=== PATIENT | female | born 1985 | race Two or more races ===

== ENCOUNTER 2024-02-03 00:28 | Inpatient (IN) | payer MEDICAID, OTHER ==
[~2024-02-03] VITALS: Ht 157.5 cm; Wt 62.2 kg
[2024-02-03] VITALS (7 sets, daily range): BP systolic 96–110; BP diastolic 59–73; TEMP 97.7–99.5; O2SAT 95–99
[2024-02-03] MEDS: IV NS 0.9% 1,000 ML BAG IV ONE ×2 (00:48)
[2024-02-03 00:51] LABS: BASOPHILS % (AUTO) 0.6 % (0.0-2.0); EOSINOPHILS # (AUTO) 0.1 K/uL (0.0-0.7); EOSINOPHILS % (AUTO) 1.2 % (0.0-6.0); HEMATOCRIT 37 % (33-45); HEMOGLOBIN 12.4 g/dL (11.5-14.8); LYMPHOCYTES # (AUTO) 1.8 K/uL (0.8-4.8); LYMPHOCYTES % (AUTO) 31.7 % (20.0-44.0); MEAN CORPUSCULAR HEMOGLOBIN 29 PG (26.0-33.0); MEAN CORPUSCULAR HGB CONC 33 g/dl (31.0-36.0); MEAN CORPUSCULAR VOLUME 88 fL (82-100); MONOCYTES # (AUTO) 0.2 K/uL (0.1-1.30); MONOCYTES % (AUTO) 3.9 % (2.0-12.0); NEUTROPHILS # (AUTO) 3.6 K/uL (1.8-8.9); NEUTROPHILS % (AUTO) 62.6 % (43.0-81.0); PLATELET COUNT (AUTO) 216 K/uL (150-450); RED BLOOD CELL COUNT(AUTO) 4.22 MIL/uL (4.0-5.2); RED CELL DISTRIBUTION WIDTH 13.2 % (11.5-15.0); WHITE BLOOD COUNT (AUTO) 5.7 K/uL (4.3-11.0)
[2024-02-03 01:00] LABS: ABG BASE EXCESS -7.5 mmol/L (-2.0-3.0); ABG OXYGEN SATURATION 97.8 % (94.0-98.0); ABG PCO2 39.2 mmHg (32.0-45.0); ABG PH 7.291 (7.350-7.450); ABG PO2 144.6 mmHg (83.0-108.0); ABG TOTAL HEMOGLOBIN 11.9 G/dL (12.0-16.0); COHb 4.8 % (0.5-1.5); MetHb 0.3 % (0.0-1.5); O2Hb 92.8 % (94.0-97.0); SITE, ABG Left Radial; VENT MODE, BG NASAL CANNULA
[2024-02-03 01:38] LABS: PREGNANCY TEST URINE QUAL NEGATIVE (NEGATIVE)
[2024-02-03 01:39] LABS: CALCIUM, SERUM 7.7 mg/dL (8.5-10.1); CARBON DIOXIDE 21 mmol/L (21-32); CHLORIDE 108 mmol/L (98-107); CREATININE 0.6 mg/dL (0.6-1.3); GLUCOSE 90 mg/dL (74-106); SODIUM SERUM 140 mmol/L (136-145); UREA NITROGEN, BLOOD 7 mg/dL (7-18)
[2024-02-03 01:39] LABS: APPEARANCE,URINE SLIGHTLY CLOUDY (CLEAR); BILIRUBIN,URINE NEGATIVE (NEGATIVE); BLOOD, URINE NEGATIVE Ery/uL (NEGATIVE); COLOR,URINE YELLOW (YELLOW); KETONES,URINE TRACE mg/dL (NEGATIVE); LEUKOCYTE ESTERASE ,URINE 1+ (NEGATIVE); NITRITE, URINE NEGATIVE (NEGATIVE); PH,URINE 5.5 (5.0-8.0); PROTEIN,URINE NEGATIVE (NEGATIVE); UGLUCOSE NEGATIVE (NEGATIVE); UROBILINOGEN,URINE 0.2 EU/dL (0.2)
[2024-02-03 01:43] LABS: ACETAMINOPHEN < 10 ug/ml (10-30); ALANINE AMINOTRANSFERASE 25 U/L (12-78); ALCOHOL, BLOOD 154 mg/dL (0-10); ALKALINE PHOSPHATASE 41 U/L (46-116); ASPARTATE AMINOTRANSFERASE 20 U/L (15-37); BILIRUBIN,DIRECT 0.1 mg/dL (0.0-0.2); BILIRUBIN,TOTAL 0.2 mg/dL (0.2-1.0); TOTAL PROTEIN, SERUM 6.2 g/dL (6.4-8.2)
[2024-02-03 01:46] LABS: AMPHETAMINE, URINE NEGATIVE (NEGATIVE); BARBITURATE, URINE NEGATIVE (NEGATIVE); BENZODIAZEPINE, URINE NEGATIVE (NEGATIVE); CANNABINOID, URINE NEGATIVE (NEGATIVE); COCCAINE, URINE NEGATIVE (NEGATIVE); OPIATE, URINE NEGATIVE (NEGATIVE); PHENCYCLIDINE SCREEN,URINE NEGATIVE (NEGATIVE)
[2024-02-03 01:47] LABS: SALICYLATE < 2.3 mg/dL (2.8-20.0)
[2024-02-03 01:56] LABS: ADD URINE CULTURE YES; BACTERIA,URINE Few /HPF (None Seen); RBC,URINE 0-2 /HPF (0-2); SQUAMOUS EPITHELIAL CELL,UR Few /HPF (None Seen)
[2024-02-03] MEDS: IV PREMIX 0.45% NS + KCL 1,000 ML IV ONE (02:23)
[2024-02-03] MEDS ORDERED: Z GUARD REMEDY 4 OZ OINT TP PRN (03:00)
[2024-02-03] MEDS ORDERED: ONDANSETRON HCL/PF 4 MG/2 ML VIAL IVP PRN (03:00)
[2024-02-03] MEDS ORDERED: IV PREMIX D5 1/2NS + KCL 1,000 ML IV ONE (04:06)
[2024-02-03] MEDS: Potassium Chloride 20 MEQ in IV D5/0.45 NACL 1,000 ML IV ONE (04:16)
[2024-02-03] MEDS: PANTOPRAZOLE 40 MG TABLET.DR PO SCH (07:30)
[2024-02-03 07:50] LABS: ALBUMIN 2.7 g/dL (3.4-5.0); BILIRUBIN,DIRECT 0.1 mg/dL (0.0-0.2); BILIRUBIN,TOTAL 0.4 mg/dL (0.2-1.0); CALCIUM, SERUM 7.5 mg/dL (8.5-10.1); CREATININE 0.6 mg/dL (0.6-1.3); MAGNESIUM 1.8 mg/dL (1.8-2.4); PHOSPHORUS 2.3 mg/dL (2.5-4.9); POTASSIUM 3.8 mmol/L (3.5-5.1); TOTAL PROTEIN, SERUM 5.7 g/dL (6.4-8.2)
[2024-02-03 07:57] LABS: BASOPHILS % (AUTO) 0.5 % (0.0-2.0); EOSINOPHILS # (AUTO) 0.1 K/uL (0.0-0.7); EOSINOPHILS % (AUTO) 1.6 % (0.0-6.0); HEMATOCRIT 38 % (33-45); HEMOGLOBIN 12.4 g/dL (11.5-14.8); LYMPHOCYTES # (AUTO) 1.8 K/uL (0.8-4.8); LYMPHOCYTES % (AUTO) 30.9 % (20.0-44.0); MEAN CORPUSCULAR HEMOGLOBIN 29 PG (26.0-33.0); MEAN CORPUSCULAR HGB CONC 33 g/dl (31.0-36.0); MEAN CORPUSCULAR VOLUME 89 fL (82-100); MONOCYTES # (AUTO) 0.3 K/uL (0.1-1.30); MONOCYTES % (AUTO) 5.5 % (2.0-12.0); NEUTROPHILS # (AUTO) 3.6 K/uL (1.8-8.9); NEUTROPHILS % (AUTO) 61.5 % (43.0-81.0); PLATELET COUNT (AUTO) 184 K/uL (150-450); RED BLOOD CELL COUNT(AUTO) 4.22 MIL/uL (4.0-5.2); RED CELL DISTRIBUTION WIDTH 13.4 % (11.5-15.0); WHITE BLOOD COUNT (AUTO) 5.8 K/uL (4.3-11.0)
[2024-02-03 08:18] LABS: THYROID STIMULATING HORMONE 1.43 uIU/mL (0.358-3.74)
[2024-02-03] MEDS: CEFTRIAXONE 1 G in IV D5W 50 ML IV SCH (12:32)
[2024-02-03] MEDS: IV NS 0.9% 1,000 ML IV PRN (12:32)
[2024-02-03] MEDS: Sodium Phosphate 15 MMOL in IV NS 0.9% 245 ML IV SCH (15:55)
[2024-02-04] VITALS (11 sets, daily range): BP systolic 82–169; BP diastolic 56–145; TEMP 98–99.9; O2SAT 86–99
[2024-02-04] MEDS: HALOPERIDOL LACTATE INJ 5 MG/ML VIAL IM ONE (04:01)
[2024-02-04] MEDS: IV NS 0.9% 1,000 ML BAG IV ONE (05:07)
[2024-02-04] MEDS ORDERED: HALOPERIDOL LACTATE INJ 5 MG/ML VIAL IM PRN (11:00)
[2024-02-04] MEDS ORDERED: IV NS 0.9% 250 ML IV ONE (13:38)
[2024-02-04] MEDS ORDERED: CT SWABBABLE VALVE TRANS SET 1 EA INFUS.SET MC ONE (13:38)
[2024-02-04] MEDS ORDERED: IOHEXOL-350 100 ML VIAL IV ONE (13:38)
[2024-02-04] MEDS: OLANZAPINE 10 MG VIAL IM PRN (21:28)
[2024-02-04] MEDS: diphenhydrAMINE HCL 50 MG/ML VIAL IV PRN (23:44)
[2024-02-05] VITALS (17 sets, daily range): BP systolic 89–146; BP diastolic 54–112; TEMP 98.6–99.8; O2SAT 91–100
[2024-02-05 02:27] LABS: ABG BASE EXCESS -6.3 mmol/L (-2.0-3.0); ABG OXYGEN SATURATION 92.8 % (94.0-98.0); ABG PCO2 21.8 mmHg (32.0-45.0); ABG PH 7.469 (7.350-7.450); ABG PO2 64.6 mmHg (83.0-108.0); ABG TOTAL HEMOGLOBIN 12.1 G/dL (12.0-16.0); COHb 0.1 % (0.5-1.5); MetHb 0.3 % (0.0-1.5); O2Hb 92.4 % (94.0-97.0); SITE, ABG ALINE
[2024-02-05 07:25] LABS: BASOPHILS % (AUTO) 0.2 % (0.0-2.0); EOSINOPHILS % (AUTO) 0.3 % (0.0-6.0); HEMATOCRIT 37 % (33-45); HEMOGLOBIN 12.1 g/dL (11.5-14.8); LYMPHOCYTES # (AUTO) 1.2 K/uL (0.8-4.8); LYMPHOCYTES % (AUTO) 8.2 % (20.0-44.0); MEAN CORPUSCULAR HEMOGLOBIN 29 PG (26.0-33.0); MEAN CORPUSCULAR HGB CONC 33 g/dl (31.0-36.0); MEAN CORPUSCULAR VOLUME 89 fL (82-100); MONOCYTES # (AUTO) 0.5 K/uL (0.1-1.30); MONOCYTES % (AUTO) 3.4 % (2.0-12.0); NEUTROPHILS # (AUTO) 13.2 K/uL (1.8-8.9); NEUTROPHILS % (AUTO) 87.9 % (43.0-81.0); PLATELET COUNT (AUTO) 144 K/uL (150-450); RED BLOOD CELL COUNT(AUTO) 4.13 MIL/uL (4.0-5.2); RED CELL DISTRIBUTION WIDTH 13.8 % (11.5-15.0); WHITE BLOOD COUNT (AUTO) 15.1 K/uL (4.3-11.0)
[2024-02-05 07:41] LABS: CALCIUM, SERUM 8.7 mg/dL (8.5-10.1); CREATININE 0.8 mg/dL (0.6-1.3); MAGNESIUM 1.8 mg/dL (1.8-2.4); PHOSPHORUS 2.3 mg/dL (2.5-4.9); POTASSIUM 3.2 mmol/L (3.5-5.1)
[2024-02-05] MEDS: POTASSIUM CL. PREMIX PERIPHER. 50 ML IV SCH (10:03)
[2024-02-05] MEDS ORDERED: IOHEXOL-350 100 ML VIAL IV ONE ×2 (13:03→13:06)
[2024-02-05] MEDS ORDERED: IV NS 0.9% 250 ML IV ONE (13:06)
[2024-02-05] MEDS ORDERED: CT SWABBABLE VALVE TRANS SET 1 EA INFUS.SET MC ONE (13:06)
[2024-02-05 13:57] LABS: ABG BASE EXCESS -9.4 mmol/L (-2.0-3.0); ABG OXYGEN SATURATION 91.9 % (94.0-98.0); ABG PCO2 20.6 mmHg (32.0-45.0); ABG PH 7.416 (7.350-7.450); ABG PO2 65.5 mmHg (83.0-108.0); COHb 0.2 % (0.5-1.5); MetHb 0.3 % (0.0-1.5); O2Hb 91.4 % (94.0-97.0)
[2024-02-05] MEDS ORDERED: ENOXAPARIN SODIUM 40 MG/0.4 ML DISP.SYRIN SQ SCH (14:00)
[2024-02-05] MEDS: dexaMETHasone SOD PHOSPHATE 10 MG/ML VIAL IV STA (14:04)
[2024-02-05] MEDS ORDERED: ENOXAPARIN SODIUM 60 MG/0.6 ML DISP.SYRIN SQ SCH (14:30)
[2024-02-05] MEDS: VANCOMYCIN 1 GM in IV D5W 250 ML IV SCH (14:56)
[2024-02-05] MEDS: FUROSEMIDE 100 MG/10 ML VIAL IV ONE (15:04)
[2024-02-05] MEDS: ALBUTEROL FS 2.5 MG/0.5 ML VIAL.NEB NEB SCH (15:44)
[2024-02-05] MEDS: IPRATROPIUM NEB FS 0.5 MG/2.5 ML AMPUL.NEB NEB SCH (15:44)
[2024-02-05 16:36] LABS: INR 1.06 (0.91-1.10); PARTIAL THROMBOPLASTIN TIME 33.9 SEC (24.3-34.3); PROTHROMBIN TIME 11.2 SECS (9.2-11.1)
[2024-02-05] MEDS: HEPARIN SODIUM, PORCINE 5000 UNITS/1 ML VIAL IV ONE (16:41)
[2024-02-05] MEDS: HEPARIN INFUSION/D5W 500 ML IV PRN (16:43)
[2024-02-05] MEDS: Sodium Phosphate 15 MMOL in IV NS 0.9% 245 ML IV SCH (17:01)
[2024-02-05] MEDS: PIPERACILLIN /TAZOBACTAM 3.375 G in IV D5W 50 ML IV SCH (18:01)
[2024-02-05] MEDS: NEUTRA PHOS 1 POWD.PACKET PO ONE (22:24)
[2024-02-06] VITALS (38 sets, daily range): BP systolic 91–123; BP diastolic 50–87; TEMP 98.4–99; O2SAT 95–100
[2024-02-06 07:41] LABS: HEMATOCRIT 38 % (33-45); HEMOGLOBIN 12.6 g/dL (11.5-14.8); LYMPHOCYTES # (AUTO) 0.5 K/uL (0.8-4.8); LYMPHOCYTES % (AUTO) 3.3 % (20.0-44.0); MEAN CORPUSCULAR HEMOGLOBIN 29 PG (26.0-33.0); MEAN CORPUSCULAR HGB CONC 33 g/dl (31.0-36.0); MEAN CORPUSCULAR VOLUME 88 fL (82-100); MONOCYTES # (AUTO) 0.4 K/uL (0.1-1.30); MONOCYTES % (AUTO) 2.6 % (2.0-12.0); NEUTROPHILS % (AUTO) 94.1 % (43.0-81.0); PLATELET COUNT (AUTO) 193 K/uL (150-450); RED BLOOD CELL COUNT(AUTO) 4.33 MIL/uL (4.0-5.2); RED CELL DISTRIBUTION WIDTH 13.8 % (11.5-15.0); WHITE BLOOD COUNT (AUTO) 13.8 K/uL (4.3-11.0)
[2024-02-06 07:47] LABS: ALBUMIN 2.4 g/dL (3.4-5.0); BILIRUBIN,TOTAL 0.6 mg/dL (0.2-1.0); CREATININE 0.8 mg/dL (0.6-1.3); MAGNESIUM 2.1 mg/dL (1.8-2.4); POTASSIUM 3.2 mmol/L (3.5-5.1); TOTAL PROTEIN, SERUM 6.6 g/dL (6.4-8.2)
[2024-02-06] MEDS: HEPARIN SODIUM, PORCINE 5000 UNITS/1 ML VIAL IV ONE (09:23)
[2024-02-06 09:43] LABS: ABG BASE EXCESS -4.6 mmol/L (-2.0-3.0); ABG OXYGEN SATURATION 99.7 % (94.0-98.0); ABG PCO2 26.3 mmHg (32.0-45.0); ABG PH 7.448 (7.350-7.450); ABG TOTAL HEMOGLOBIN 13.8 G/dL (12.0-16.0); COHb 0.3 % (0.5-1.5); MetHb 0.2 % (0.0-1.5); O2Hb 99.2 % (94.0-97.0); SITE, ABG RIGHT RADIAL
[2024-02-06] MEDS: POTASSIUM CHLORIDE 20 MEQ TAB.PRT.SR PO SCH (10:14)
[2024-02-06] MEDS: PANTOPRAZOLE 40 MG TABLET.DR PO ONE (11:18)
[2024-02-07] VITALS (25 sets, daily range): BP systolic 86–113; BP diastolic 51–84; TEMP 98–98.6; O2SAT 96–100
[2024-02-07] MEDS: MAG HYDROX/AL HYDROX/SIMETH 30 ML UDC PO PRN (00:36)
[2024-02-07 04:43] LABS: HEMATOCRIT 33 % (33-45); LYMPHOCYTES # (AUTO) 1.2 K/uL (0.8-4.8); LYMPHOCYTES % (AUTO) 11.5 % (20.0-44.0); MEAN CORPUSCULAR HEMOGLOBIN 30 PG (26.0-33.0); MEAN CORPUSCULAR HGB CONC 33 g/dl (31.0-36.0); MEAN CORPUSCULAR VOLUME 89 fL (82-100); MONOCYTES # (AUTO) 0.5 K/uL (0.1-1.30); MONOCYTES % (AUTO) 4.4 % (2.0-12.0); NEUTROPHILS # (AUTO) 9.1 K/uL (1.8-8.9); NEUTROPHILS % (AUTO) 84.1 % (43.0-81.0); PLATELET COUNT (AUTO) 192 K/uL (150-450); RED BLOOD CELL COUNT(AUTO) 3.73 MIL/uL (4.0-5.2); RED CELL DISTRIBUTION WIDTH 13.9 % (11.5-15.0); WHITE BLOOD COUNT (AUTO) 10.9 K/uL (4.3-11.0)
[2024-02-07 04:55] LABS: CALCIUM, SERUM 7.8 mg/dL (8.5-10.1); CREATININE 0.8 mg/dL (0.6-1.3); MAGNESIUM 2.4 mg/dL (1.8-2.4); PHOSPHORUS 1.9 mg/dL (2.5-4.9)
[2024-02-07 05:05] LABS: POTASSIUM 2.7 mmol/L (3.5-5.1)
[2024-02-07] MEDS: POTASSIUM CHLORIDE 20 MEQ TAB.PRT.SR PO ONE (06:39)
[2024-02-07] MEDS: POTASSIUM CHLORIDE 10 MEQ/50 ML PREMIXED IVPB FOR PERIPHERAL LINE IV SCH (06:39)
[2024-02-07] MEDS: POTASSIUM CL. PREMIX PERIPHER. 50 ML IV SCH (08:44)
[2024-02-07] MEDS: VANCOMYCIN 750 MG in IV D5W 250 ML IV SCH (09:22)
[2024-02-07] MEDS: ACETAMINOPHEN 325 MG TABLET PO PRN (10:01)
[2024-02-07] MEDS ORDERED: POTASSIUM PHOSPHATE MM 15 MMOL in IV NS 0.9% 250 ML IV SCH (12:30)
[2024-02-07] MEDS: POTASSIUM PHOSPHATE MM 7.5 MMOL in IV NS 0.9% 100 ML IV SCH (12:57)
[2024-02-07] MEDS: MAGNESIUM HYDROXIDE 30 ML UDC PO PRN (15:11)
[2024-02-07] MEDS: APIXABAN 5 MG TABLET PO SCH (17:16)
[2024-02-07] MEDS: CELECOXIB 100 MG CAPSULE PO SCH (20:34)
[2024-02-08] VITALS (18 sets, daily range): BP systolic 95–124; BP diastolic 64–92; TEMP 98–98.4; O2SAT 89–100
[2024-02-08 06:50] LABS: BASOPHILS % (AUTO) 0.3 % (0.0-2.0); EOSINOPHILS # (AUTO) 0.2 K/uL (0.0-0.7); EOSINOPHILS % (AUTO) 3.2 % (0.0-6.0); HEMATOCRIT 34 % (33-45); HEMOGLOBIN 11.3 g/dL (11.5-14.8); LYMPHOCYTES # (AUTO) 1.8 K/uL (0.8-4.8); LYMPHOCYTES % (AUTO) 26.4 % (20.0-44.0); MEAN CORPUSCULAR HEMOGLOBIN 29 PG (26.0-33.0); MEAN CORPUSCULAR HGB CONC 33 g/dl (31.0-36.0); MEAN CORPUSCULAR VOLUME 88 fL (82-100); MONOCYTES # (AUTO) 0.3 K/uL (0.1-1.30); MONOCYTES % (AUTO) 4.9 % (2.0-12.0); NEUTROPHILS # (AUTO) 4.4 K/uL (1.8-8.9); NEUTROPHILS % (AUTO) 65.2 % (43.0-81.0); PLATELET COUNT (AUTO) 191 K/uL (150-450); RED BLOOD CELL COUNT(AUTO) 3.84 MIL/uL (4.0-5.2); RED CELL DISTRIBUTION WIDTH 13.6 % (11.5-15.0); WHITE BLOOD COUNT (AUTO) 6.8 K/uL (4.3-11.0)
[2024-02-08 08:05] LABS: CALCIUM, SERUM 8.1 mg/dL (8.5-10.1); CREATININE 0.7 mg/dL (0.6-1.3); MAGNESIUM 2.1 mg/dL (1.8-2.4); PHOSPHORUS 2.5 mg/dL (2.5-4.9); POTASSIUM 3.5 mmol/L (3.5-5.1)
[2024-02-09] VITALS (10 sets, daily range): BP systolic 120–137; BP diastolic 74–79; TEMP 97.9–98.2; O2SAT 98–100
[2024-02-09 08:31] LABS: CREATININE 0.7 mg/dL (0.6-1.3); MAGNESIUM 1.9 mg/dL (1.8-2.4); PHOSPHORUS 3.9 mg/dL (2.5-4.9); POTASSIUM 3.4 mmol/L (3.5-5.1)
[2024-02-09 08:42] LABS: CALCIUM, SERUM 8.5 mg/dL (8.5-10.1)
[2024-02-09 08:45] LABS: BASOPHILS % (AUTO) 0.3 % (0.0-2.0); EOSINOPHILS # (AUTO) 0.4 K/uL (0.0-0.7); EOSINOPHILS % (AUTO) 5.9 % (0.0-6.0); HEMATOCRIT 36 % (33-45); HEMOGLOBIN 11.7 g/dL (11.5-14.8); LYMPHOCYTES # (AUTO) 1.6 K/uL (0.8-4.8); LYMPHOCYTES % (AUTO) 22.2 % (20.0-44.0); MEAN CORPUSCULAR HEMOGLOBIN 29 PG (26.0-33.0); MEAN CORPUSCULAR HGB CONC 33 g/dl (31.0-36.0); MEAN CORPUSCULAR VOLUME 89 fL (82-100); MONOCYTES # (AUTO) 0.4 K/uL (0.1-1.30); MONOCYTES % (AUTO) 5.4 % (2.0-12.0); NEUTROPHILS # (AUTO) 4.6 K/uL (1.8-8.9); NEUTROPHILS % (AUTO) 66.2 % (43.0-81.0); PLATELET COUNT (AUTO) 199 K/uL (150-450); RED BLOOD CELL COUNT(AUTO) 4.03 MIL/uL (4.0-5.2); RED CELL DISTRIBUTION WIDTH 14.1 % (11.5-15.0)
[2024-02-09] MEDS: POTASSIUM CHLORIDE 20 MEQ TAB.PRT.SR PO SCH (11:03)
[2024-02-09] MEDS ORDERED: APIX5TAB PO ×2 (12:02)
[2024-02-09] MEDS ORDERED: PANT40TA49 PO (12:02)
== END 2024-02-09 15:28 | disposition home or self-care (01) | DRG 812 ==
LOC: ER 00:29 → TELE1 02:21 → TELE 20:22 → ICU 02-05 13:34 → TELE1 02-07 11:57
PROVIDERS: ADMIT Nurse Practitioner Acute Care; ATTEND Nurse Practitioner Acute Care
DX: T43.591A Poisoning by other antipsychotics and neuroleptics, accidental (unintentional), initial encounter (principal); I26.99 Other pulmonary embolism without acute cor pulmonale; J69.0 Pneumonitis due to inhalation of food and vomit; J96.01 Acute respiratory failure with hypoxia; I21.A1 Myocardial infarction type 2; G93.41 Metabolic encephalopathy; E87.6 Hypokalemia; T43.211A Poisoning by selective serotonin and norepinephrine reuptake inhibitors, accidental (unintentional), initial encounter; T43.221A Poisoning by selective serotonin reuptake inhibitors, accidental (unintentional), initial encounter; Y92.009 Unspecified place in unspecified non-institutional (private) residence as the place of occurrence of the external cause; F10.129 Alcohol abuse with intoxication, unspecified; Y90.6 Blood alcohol level of 120-199 mg/100 ml; N39.0 Urinary tract infection, site not specified; I82.432 Acute embolism and thrombosis of left popliteal vein; Z20.822 Contact with and (suspected) exposure to COVID-19; E83.39 Other disorders of phosphorus metabolism; E87.20 Acidosis, unspecified; F32.9 Major depressive disorder, single episode, unspecified; F41.9 Anxiety disorder, unspecified; E88.09 Other disorders of plasma-protein metabolism, not elsewhere classified; F17.200 Nicotine dependence, unspecified, uncomplicated; Z86.711 Personal history of pulmonary embolism; I51.89 Other ill-defined heart diseases
CPT/HCPCS: 36415; 36600; 70450-TC; 71045-TC; 74018; 80048-TC; 80053-TC; 80076-TC; 80202-TC; 81001; 82803-TC; 82962-TC; 83735-TC; 83880; 84100-TC; 84443-TC; 84484-TC; 84703-TC; 85025-TC; 85610-TC; 85730-TC; 87040-TC; 93307-TC; 93970-TC; 94761-TC; 94762-TC; 94799-TC; 97110-TC; 97116-TC; 97530-TC; 98960; A4223; A9563; G0378; G0480; J0696; J1100; J1200; J1630; J1644; J1940; J2543; J3370; J3371; J3480; J3490; J7030; J7050; J7060; Q9967